=== PATIENT | male | born 1970 | race Caucasian/White ===

== ENCOUNTER 2020-10-01 07:46 | Day surgery (SDC) | payer OTHER ==
[2020-10-01 08:17] VITALS: BMI 37.5
[2020-10-01 10:05] VITALS: TEMP 98.2
[2020-10-01 10:08] VITALS: BP 110/65; PULSE 74
== END 2020-10-01 10:12 | disposition home or self-care (01) ==
LOC: FASU 07:46
PROVIDERS: ATTEND Internal Medicine Gastroenterology
PROC: 0DBP8ZX Excision of Rectum, Via Natural or Artificial Opening Endoscopic, Diagnostic (ICD-10-PCS; 2020-10-01)
PROC: 0DBH8ZX Excision of Cecum, Via Natural or Artificial Opening Endoscopic, Diagnostic (ICD-10-PCS; principal; 2020-10-01 09:11)
DX: Z12.11 Encounter for screening for malignant neoplasm of colon (principal); D12.1 Benign neoplasm of appendix; K62.1 Rectal polyp
CPT/HCPCS: 88305-TC